=== PATIENT | female | born 2000 | race Caucasian/White ===

== ENCOUNTER 2021-04-02 20:01 | Emergency (ER) | payer BC ==
[2021-04-02] MEDS ORDERED: Cefdinir 300 MG Cap PO ONE (20:42)
[2021-04-02] MEDS ORDERED: Phenazopyridine 95 MG Tab PO ONE (20:46)
--- NOTE | 2021-04-02 20:54 | EDM.PDOC ---
ED HPI GENERAL MEDICAL PROBLEM - General Chief Complaint: Genitourinary Problem Stated Complaint: LOWER ABDOMINAL & BACK PAIN Time Seen by Provider: 04/02/21 20:14 Source of Information: Reports: Patient, RN Notes Reviewed History Limitations: Reports: No Limitations - History of Present Illness INITIAL COMMENTS - FREE TEXT/NARRATIVE: Patient is a 20-year-old female presenting to the emergency department with complaints of dysuria and bladder pain. She does report some intermittent left back pain, however she feels this may likely be related to the heavy amount of lifting she does as part of her work. Reports symptoms have been going on for the last few days. She does have a history of urinary tract infections. She has been using cranberry juice and Tylenol thinking that would resolve it, however she has had no relief. She denies any fever, chills, nausea, or vomiting. Denies any benita hematuria but states that she does feel that her urine looked a little pink the other day. Bladder Pain Score (Numeric/FACES): 8 - Related Data Allergies Allergy/AdvReac Type Severity Reaction Status Date / Time No Known Allergies Allergy Verified 04/02/21 20:14 Home Meds: Home Meds Cefdinir [Omnicef] 300 mg PO BID 10 Days #19 cap 04/02/21 [Rx] Phenazopyridine [Pyridium] 200 mg PO TID PRN 2 Days #12 tab 04/02/21 [Rx] norgestimate-ethinyl estradioL [Sprintec 28 Day Tablet] 1 tab PO DAILY 04/02/21 [History] Past Medical History Genitourinary History: Reports: UTI, Recurrent Social & Family History - Tobacco Use Tobacco Use Status *Q: Never Tobacco User - Caffeine Use Caffeine Use: Reports: Coffee, Soda, Tea - Recreational Drug Use Recreational Drug Use: No ED ROS GENERAL - Review of Systems Review Of Systems: Comprehensive ROS is negative, except as noted in HPI. ED EXAM, RENAL/ - Physical Exam Exam: See Below Exam Limited By: No Limitations General Appearance: Alert, WD/WN, No Apparent Distress Respiratory/Chest: No Respiratory Distress, Lungs Clear, Normal Breath Sounds, No Accessory Muscle Use, Chest Non-Tender Cardiovascular: Normal Peripheral Pulses, Regular Rate, Rhythm, No Edema, No Gallop, No JVD, No Murmur, No Rub GI/Abdominal: Normal Bowel Sounds, Soft, No Organomegaly, No Distention, No Abnormal Bruit, No Mass, Tender (Suprapubic tenderness) Neurological: Alert, Oriented, CN II-XII Intact, Normal Cognition, Normal Gait, Normal Reflexes, No Motor/Sensory Deficits Psychiatric: Normal Affect, Normal Mood Skin Exam: Warm, Dry, Intact, Normal Color, No Rash Course - Vital Signs Last Recorded V/S: Last Vital Signs Temp 98.3 F 04/02/21 20:19 Pulse 69 04/02/21 20:19 Resp 20 04/02/21 20:19 BP 117/79 04/02/21 20:19 Pulse Ox 99 04/02/21 20:19 - Orders/Labs/Meds Orders: Active Orders 24 hr Category Date Time Status UA W/MICROSCOPIC [URIN] Stat Lab 04/02/21 20:20 Received Labs: Laboratory Tests 04/02/21 Range/Units 20:20 Urine Color Yellow (Yellow) Urine Appearance Cloudy H (Clear) Urine pH 6.5 (5.0-8.0) Ur Specific Lovely > or = 1.030 (1.005-1.030) Urine Protein 2+ H (Negative) Urine Glucose (UA) Negative (Negative) Urine Ketones Negative (Negative) Urine Occult Blood 3+ H (Negative) Urine Nitrite Negative (Negative) Urine Bilirubin Negative (Negative) Urine Urobilinogen 0.2 (0.2-1.0) Ur Leukocyte Esterase 1+ H (Negative) Meds: Medications Discontinued Medications Generic Name Dose Route Start Last Admin Trade Name Freq PRN Reason Stop Dose Admin Cefdinir 300 mg 04/02/21 20:42 Cefdinir 300 Mg Cap PO 04/02/21 20:43 ONETIME ONE Phenazopyridine HCl 190 mg 04/02/21 20:46 Phenazopyridine 95 Mg Tab PO 04/02/21 20:47 ONETIME ONE - Re-Assessments/Exams Free Text/Narrative Re-Assessment/Exam: Patient is a 20-year-old female presenting to the emergency department with complaints of a few day history of dysuria as well as some intermittent left- sided back pain. She does report a history of urinary tract infections and has been trying to resolve it with Tylenol and cranberry juice, however this is not working. She is had no fever, chills, nausea, or vomiting. On exam, she has no CVA tenderness but she is quite tender in the suprapubic region. Urinalysis collected on triage shows 1+ leukocyte esterase, 3+ occult blood. Micro is currently pending. Based on this, patient will be treated for urinary tract infection. Although it is likely that her back pain is related to heavy lifting she does as part of the work, I will treat with Omnicef to cover for possible underlying pyelonephritis. I will also send a prescription for Pyridium to help with the dysuria. Recommend increase fluid intake. Urine has been sent for culture. Discharge instructions as documented. Departure - Departure Time of Disposition: 20:51 Disposition: Home, Self-Care 01 Condition: Good Clinical Impression: UTI, Urinary tract infectious disease - Discharge Information *PRESCRIPTION DRUG MONITORING PROGRAM REVIEWED*: No *COPY OF PRESCRIPTION DRUG MONITORING REPORT IN PATIENT DB: No Prescriptions: Cefdinir [Omnicef] 300 mg PO BID 10 Days #19 cap Phenazopyridine [Pyridium] 200 mg PO TID PRN 2 Days #12 tab PRN Reason: Dysuria Instructions: Urinary Tract Infection, Adult Referrals: PCP,None [Primary Care Provider] - Additional Instructions: You were seen in the emergency department today for burning with urination. Urinalysis was completed and does show that you have a urinary tract infection. You been started on cefdinir for treatment of this. Take this medication as prescribed. You have also been prescribed Pyridium to help with the pain associated with urination. You did receive a first dose of both these medications in the emergency department. Prescription has been sent to [place] [facility] and the [facility]. Continue these medications as prescribed. Recommended increased fluid intake. He may also use ibuprofen as needed for discomfort. If you should experience any new or worsening symptoms, please not hesitate to return to the emergency department for reevaluation. Sepsis Event Note (ED) - Evaluation Sepsis Screening Result: No Definite Risk - Focused Exam Vital Signs: Vital Signs Temp Pulse Resp BP Pulse Ox 04/02/21 20:19 98.3 F 69 20 117/79 99 - My Orders Last 24 Hours: My Active Orders 04/02/21 20:20 UA W/MICROSCOPIC [URIN] Stat - Assessment/Plan Last 24 Hours: My Active Orders 04/02/21 20:20 UA W/MICROSCOPIC [URIN] Stat
== END 2021-04-02 21:10 | disposition home or self-care (01) ==
LOC: JD.ED 20:01
DX: N39.0 Urinary tract infection, site not specified (principal)
CPT/HCPCS: 81001; 99283; A9270